=== PATIENT | female | born 1980 | race African-American/Black ===

== ENCOUNTER 2016-10-30 21:37 | Emergency (ER) | payer OTHER ==
[~2016-10-30] VITALS: Ht 167.6 cm; Wt 77.0 kg
[2016-10-30] MEDS ORDERED: KETOROLAC TROMETHAMINE 60 MG/2 ML VIAL IM ONE (22:45)
[2016-10-30 23:24] VITALS: BP 125/72
== END 2016-10-30 23:26 | disposition home or self-care (01) ==
LOC: EMS 21:39
DX: M79.1 Myalgia (principal); M54.5 Low back pain; V59.40XA Driver of pick-up truck or van injured in collision with unspecified motor vehicles in traffic accident, initial encounter; Y93.89 Activity, other specified; Y92.411 Interstate highway as the place of occurrence of the external cause; Y99.8 Other external cause status
CPT/HCPCS: 72100; 81025; 96372; 99284; J1885

== ENCOUNTER 2017-08-13 18:26 | Emergency (ER) | payer SELFPAY ==
[~2017-08-13] VITALS: Ht 167.6 cm; Wt 77.3 kg
[2017-08-13] MEDS ORDERED: KETOROLAC TROMETHAMINE 60 MG/2 ML VIAL IM ONE (20:30)
[2017-08-13] MEDS ORDERED: DIAZEPAM 5 MG TABLET PO ONE (22:45)
[2017-08-13 23:15] VITALS: BP 130/77
== END 2017-08-13 23:25 | disposition home or self-care (01) ==
LOC: EMS 18:27
DX: S13.4XXA Sprain of ligaments of cervical spine, initial encounter (principal); S23.3XXA Sprain of ligaments of thoracic spine, initial encounter; S33.5XXA Sprain of ligaments of lumbar spine, initial encounter; V49.40XA Driver injured in collision with unspecified motor vehicles in traffic accident, initial encounter; Y93.89 Activity, other specified; Y92.89 Other specified places as the place of occurrence of the external cause; Y99.8 Other external cause status
CPT/HCPCS: 72125; 72128; 72131; 73503; 81025; 96372; 99284; J1885